=== PATIENT | male | born 1980 | race Caucasian/White ===

== ENCOUNTER → 2019-05-18 | Outpatient (CLI) | payer OTHER ==
[~2019-05-18] MED LIST: GADOBENATE DIMEGLUMINE 1 ML IV ONE; IOPAMIDOL 300 MG/ML 15ML VIAL IT ONE; LIDOCAINE HCL 1% LOCAL INJ 20 ML VIAL ONE
--- NOTE | 2019-05-18 10:26 | Diagnostic Imaging Report ---
MRI of the left shoulder with contrast. History: Shoulder pain. Weakness. Decreased range of motion. Sprain. Impingement. Labral tear. Comparison: Arthrogram from the same day Technique: Multiplanar multisequence MRI of the shoulder after the administration of intra-articular gadolinium contrast material Findings: Rotator cuff: Mild rotator cuff tendinosis without tear, muscle atrophy or retraction. Osseous acromion complex: Type II acromion with mild lateral downsloping. Moderate degenerative arthrosis at the acromioclavicular joint with undersurface spurring and mild narrowing of the supraspinatus tendon outlet. Mild bone marrow edema in the distal clavicle likely stress related. Glenohumeral joint: Degeneration and fraying of the superior labrum. The articular cartilage surfaces are intact. The humeral head is well-seated in the glenoid fossa. Gadolinium contrast material is seen filling the shoulder joint. Biceps tendon: The biceps tendon is intact. Other findings: Negative for muscle denervation or osseous fracture. Impression: Moderate degenerative arthrosis at the acromioclavicular joint with narrowing of the supraspinatus tendon outlet and mild bone marrow edema in the distal clavicle which is thought to be stress related. Mild rotator cuff tendinosis without tear, muscle atrophy or retraction. Degeneration and fraying of the superior labrum. Signed by: Dr. Jewel Lozano M.D. on 05/18/2019 10:22 AM
--- NOTE | 2019-05-18 15:59 | Diagnostic Imaging Report ---
ADDENDUM #1 Fluoro time: 1.3 minutes Cumulative Dose: 9.8mGy Signed by: Kendra Cole MD on 05/20/2019 9:53 AM ORIGINAL REPORT EXAM: INJECTION ARTHROGRAM SHOULDER DATE: 05/18/2019 8:32 AM INDICATION: Left shoulder pain COMPARISON: None Physician performing procedure: Dr. Kendra Cole MD PROCEDURES PERFORMED: Fluoroscopically-guided left glenohumeral joint arthrogram with MRI to follow Fluoro time: 1.3 Dose: 9.8mGy Anesthesia: Local, 1% lidocaine Devices: 22 gauge BD Quincke needle PROCEDURE REPORT: After written and verbal consent were obtained, the patient was placed supine on the fluoroscopy table with the left shoulder in external rotation. Using fluoroscopic guidance, sterile technique and local anesthesia, a 22 gauge, 3.5 inch needle was inserted percutaneously into the left glenohumeral joint. Proper placement was confirmed by injecting 1 cc of Isovue 300 into the joint under fluoroscopy. Next, 10 cc of a 1:100 mixture of Multihance with Isovue 300 and normal saline were then injected. Complications: None Blood loss: Minimal Samples: None Patient disposition: MRI in stable condition. IMPRESSION: Uncomplicated fluoroscopically-guided left glenohumeral arthrogram with MRI to follow. Contrast is within the joint. See MRI report for full findings. Signed by: Kendra Cole MD on 05/18/2019 3:56 PM
== END ==
LOC: DX 08:17
PROVIDERS: ATTEND Orthopaedic Surgery
DX: S43.422A Sprain of left rotator cuff capsule, initial encounter (principal); M75.42 Impingement syndrome of left shoulder
CPT/HCPCS: 20610; 23350; 73222; 77002; A9577; Q9967; J2001